=== PATIENT | female | born 1970 | race Caucasian/White ===

== ENCOUNTER 2021-05-22 09:15 | Inpatient (IN) ==
[2021-05-22] MEDS ORDERED: dexAMETHasone**PF** 10 MG/ML VIAL IV ONE (09:36)
--- NOTE | 2021-05-22 09:42 | Emergency Department Note ---
Impression & Plan Pneumonia due to COVID-19 virus, Hypoxia ED Provider Note NAME: ED ASH AGE: 50 SEX: F : 1970 ARRIVES VIA: Walk-In INFORMANT: Patient, ED PROVIDER(S): Nicola Flores DO CHIEF COMPLAINT: Shortness of breath HPI: The patient is a 50-year-old female who presented to the emergency department for an evaluation of shortness of breath. The patient is not vaccinated against COVID-19. She states that her initially started having symptoms for COVID-19 and then she started having symptoms shortly after. The patient was tested and was positive for COVID-19. She was started on a course of steroids by her primary care physician. She has 2 days left. She did not receive monoclonal antibody therapy. She has had symptoms for a total of 14 days. She did have a pulse ox at home. Over the last 48 hours she started having more shortness of breath and difficulty breathing. She is had difficulty breathing with exertion. The patient has a pulse ox at home and states that it was in the 70s this morning when she was very symptomatic. Since that time she is tried to get up and walk around with worsening shortness of breath. She did not see her primary care physician for the symptoms today. She is not noticed any lower extremity swelling or pain. The patient states her symptoms are mild at this time at rest but become very severe upon any exertion. The patient did have carpal tunnel surgery before this all started but has never had a history of DVT or pulmonary embolism. ROS: See above HPI for pertinent positives & negatives. A total of 10 systems reviewed and were otherwise negative. PAST MEDICAL HISTORY: See Below PAST SURGICAL HISTORY: See Below FAMILY HISTORY: See Below SOCIAL HISTORY: See Below HOME MEDICATIONS: See Below ALLERGIES: See Below VITALS: See Below PHYSICAL EXAMINATION: GENERAL: The patient is awake and alert. The patient is somewhat anxious appearing. EYES: The conjunctivae are clear. The pupils are round and reactive. EARS, NOSE, MOUTH AND THROAT: The nose is without any evidence of any deformity. NECK: The neck is nontender and supple. RESPIRATORY: Stational dyspnea was noted. Diminished breath sounds are noted in the left lung field with rales scattered throughout the right lung field. CARDIOVASCULAR: Regular rate and rhythm noted there no murmurs rubs or gallops normal S1 normal S2. GASTROINTESTINAL: The abdomen is soft. Abdomen is nontender. MUSCULOSKELETAL/EXTREMITIES: There is no evidence of gross deformity full range of motion is noted in the hips and shoulders. SKIN: There is no obvious evidence of any rash. There are no petechiae, pallor or cyanosis noted. No calf tenderness was elicited. NEUROLOGIC: Patient is awake alert and oriented x3 MEDICAL DECISION MAKING: The patient is a 50-year-old female who presented to the emergency department for an evaluation of shortness of breath. The patient was recently diagnosed with COVID-19. Her symptoms continue to worsen. She was on a course of steroids as an outpatient. She presents emergency department today with much worsening symptoms and significant hypoxia. I discussed the patient's laboratory and radiographic studies with her. I also discussed her case with the on-call [facility] hospitalist group. They have agreed to evaluate the patient in the emergency department for further management and disposition. The patient was placed on supplemental oxygen with some improvement of her symptoms. Triage Nursing notes reviewed. Prior medical records reviewed Vital Signs: reviewed and remarkable for hypoxia. Differential diagnosis: Reactive airway disease, pneumonia, pneumothorax, COPD, CHF, infections, cardiac ischemia, pulmonary embolism, musculoskeletal, gastrointestinal, as well as other pathologies. ER treatment provided: See below Diagnostics interpreted by me: ECG: EKG was obtained in the emergency department. My interpretation is normal sinus rhythm at 65 bpm. There is no ectopy. There was no acute ST segment abnormalities noted. This was compared to a tracing from March 06, 2019. No significant changes were noted. Cardiac Monitoring: An order was placed for continuous cardiac monitoring. The monitor shows a rate of 64 bpm with sinus rhythm. Laboratory studies: As stated above and show below. Imaging studies: See below Consultation(s): Dr. Clifford was notified about the patient. He is currently on for the [facility]ist group. Past Med/Surg History Medical History Allergic rhinitis Anxiety Back pain Depression with anxiety Lumbar herniated disc Vitamin D deficiency Surgical History No history of previous surgery Family History Grandmother (Maternal) Breast cancer Grandfather (Paternal) Myocardial infarction Denies family history of Ovarian cancer Colorectal cancer Social History Smoking Status: Never smoker Second Hand Exposure: No; Hx Alcohol Use: No Hx Substance Use: No Preferred Language: Welsh marital status: Current Living Situation: Spouse current occupational status: employed Feels Safe at Home: Yes caffeine: Yes Dental Care, Regularly: No Physical Activity Frequency: 1-2 Times per Week Seatbelt Use: always Sunscreen Use: Yes Allergies Allergies Allergy/AdvReac Type Severity Reaction Status Date / Time prednisone Allergy Mild RASH Verified 05/22/21 12:00 ANTIBIOTIC CREAMS Allergy Mild RASH Uncoded 05/22/21 12:00 Neosporin OINT Allergy Mild Rash Uncoded 05/22/21 12:00 Polysporin OINT Allergy Mild Rash Uncoded 05/22/21 12:00 Home Meds Home Medications Medication Instructions Recorded Confirmed cholecalciferol (vitamin D3) 25 3,000 unit PO PM 03/06/19 05/22/21 mcg (1,000 unit) tablet (Vitamin D3) multivitamin 1 tab PO PM 03/06/19 05/22/21 buspirone 5 mg tablet 5 mg PO PM 05/22/21 05/22/21 dexamethasone 4 mg tablet 4 mg PO QAM 05/22/21 05/22/21 ibuprofen 200 mg capsule (Advil 400 mg PO Q6H PRN 05/22/21 05/22/21 Liqui-Gel) lisinopril 10 mg tablet 10 mg PO PM 05/22/21 05/22/21 Previous Rx's Medication Instructions Recorded codeine 10 mg-guaifenesin 100 mg/5 5 ml PO Q6H PRN #118 ml 05/17/21 mL oral liquid ondansetron HCl 4 mg tablet 4 mg PO Q8H PRN #30 tab 05/17/21 Results & Data (ED) Vital Signs Vital Signs - 24 hr 05/22/21 09:22 05/22/21 10:01 05/22/21 10:30 Temperature 36.7 C Temperature Source Temporal Artery Scan Pulse Rate 79 68 61 Pulse Rate [Apical] Pulse Rate from SpO2 Sensor 68 60 Respiratory Rate 20 27 H 24 Respiratory Effort / Characteristics Non-Labored Spontaneous Respiratory Depth Normal Blood Pressure 99/66 L 103/56 L 105/57 L Blood Pressure [Left Arm] Blood Pressure Mean 77 71 73 Blood Pressure Mean [Left Arm] Blood Pressure Position Sitting Pulse Oximetry 91 92 97 Oxygen Delivery Method Room Air Oxygen Flow Rate Sepsis Recent Fever Within 48 Hours No Sepsis New/Unexplained Change in Mental Status N/A Sepsis Action Taken by Nursing No Action Required 05/22/21 10:33 05/22/21 11:00 05/22/21 11:30 Temperature Temperature Source Pulse Rate 56 L 60 Pulse Rate [Apical] Pulse Rate from SpO2 Sensor 56 L 60 Respiratory Rate 24 23 Respiratory Effort / Characteristics Respiratory Depth Blood Pressure 121/71 127/81 Blood Pressure [Left Arm] Blood Pressure Mean 87 96 Blood Pressure Mean [Left Arm] Blood Pressure Position Pulse Oximetry 90 97 96 Oxygen Delivery Method Room Air Oxygen Flow Rate Sepsis Recent Fever Within 48 Hours Sepsis New/Unexplained Change in Mental Status Sepsis Action Taken by Nursing 05/22/21 12:00 05/22/21 12:33 05/22/21 13:00 Temperature Temperature Source Pulse Rate 75 66 68 Pulse Rate [Apical] Pulse Rate from SpO2 Sensor 71 66 70 Respiratory Rate 29 H 26 H 20 Respiratory Effort / Characteristics Respiratory Depth Blood Pressure 125/68 Blood Pressure [Left Arm] Blood Pressure Mean 87 Blood Pressure Mean [Left Arm] Blood Pressure Position Pulse Oximetry 96 94 96 Oxygen Delivery Method Oxygen Flow Rate Sepsis Recent Fever Within 48 Hours Sepsis New/Unexplained Change in Mental Status Sepsis Action Taken by Nursing 05/22/21 13:30 05/22/21 14:01 05/22/21 14:30 Temperature Temperature Source Pulse Rate 60 100 H 56 L Pulse Rate [Apical] Pulse Rate from SpO2 Sensor 60 56 L Respiratory Rate 23 15 26 H Respiratory Effort / Characteristics Respiratory Depth Blood Pressure Blood Pressure [Left Arm] Blood Pressure Mean Blood Pressure Mean [Left Arm] Blood Pressure Position Pulse Oximetry 95 95 Oxygen Delivery Method Oxygen Flow Rate Sepsis Recent Fever Within 48 Hours Sepsis New/Unexplained Change in Mental Status Sepsis Action Taken by Nursing 05/22/21 15:44 Temperature Temperature Source Pulse Rate Pulse Rate [Apical] 64 Pulse Rate from SpO2 Sensor Respiratory Rate 26 H Respiratory Effort / Characteristics Respiratory Depth Blood Pressure Blood Pressure [Left Arm] 110/63 Blood Pressure Mean Blood Pressure Mean [Left Arm] 78 Blood Pressure Position Pulse Oximetry 94 Oxygen Delivery Method Nasal Cannula Oxygen Flow Rate 2 Sepsis Recent Fever Within 48 Hours Sepsis New/Unexplained Change in Mental Status Sepsis Action Taken by Alf Medications Current Medication List: was personally reviewed by me Laboratory Data Attestation: I reviewed the patient's lab results. Result diagrams: 05/22/21 09:58 05/22/21 09:58 Lab Results 05/22/21 05/22/21 05/22/21 Range/Units 09:58 09:58 09:58 WBC 4.93 (4.8-10.8) K/uL RBC 4.45 (4.2-5.4) M/uL Hgb 13.4 (12.0-16.0) g/dL Hct 39.9 (37-47) % MCV 89.7 (80-100) fL MCH 30.1 (25-34) pg MCHC 33.6 (32-36) g/dL RDW Std Deviation 45.5 (36.4-46.3) fL RDW Coeff of Trisha 13.8 (11.5-14.5) % Plt Count 176 (130-400) K/uL MPV 9.6 (7.4-10.4) fL Immature Gran % (Auto) 0.6 % Neut % (Auto) 79.5 % Lymph % (Auto) 12.2 % Gem % (Auto) 7.5 % Eos % (Auto) 0.0 % Baso % (Auto) 0.2 % Neut # (Auto) 3.92 (1.4-6.5) K/uL Lymph # (Auto) 0.60 L (1.2-3.4) K/uL Gem # (Auto) 0.37 (0.11-0.59) K/uL Eos # (Auto) 0.00 (0-0.5) K/uL Baso # (Auto) 0.01 (0-0.2) K/uL Immature Gran # (Auto) 0.03 H (0.00-0.02) K/uL PT 9.2 (9.0-12.0) Seconds INR 0.9 (0.9-1.1) APTT 26.9 (21.0-31.0) Seconds PTT Ratio 1.0 D-Dimer 760 H* (0-500) ug/L FEU VBG pH (7.36-7.41) VBG pCO2 (38-50) mmHg VBG pO2 mmHg VBG HCO3 mmol/L VBG O2 Saturation % VBG Base Excess mEq/L Barometric Pressure mm/Hg Sodium 140 (136-145) mmol/L Potassium 3.2 L (3.5-5.1) mmol/L Chloride 105 (98-107) mmol/L Carbon Dioxide 28 (21-32) mmol/L Anion Gap 7.0 (3-11) BUN 9 (7-18) mg/dl Creatinine 0.85 (0.6-1.2) mg/dl Est Cr Clr Drug Dosing 112.3 ml/min Est GFR ( Amer) 93.9 ml/min Est GFR (Non-Af Amer) 81.0 ml/min BUN/Creatinine Ratio 10.1 (10-20) Glucose 109 H (70-99) mg/dl Calcium 8.0 L (8.5-10.1) mg/dl Magnesium 2.3 (1.8-2.4) mg/dl Total Bilirubin 0.8 (0.2-1) mg/dl AST 72 H (15-37) U/L ALT 84 H (12-78) U/L Alkaline Phosphatase 109 (45-117) U/L Troponin I < 0.015 (0-0.045) ng/ml C-Reactive Protein (0-0.29) mg/dl NT-Pro-B Natriuret Pep 237 (0-450) pg/ml Total Protein 6.9 (6.4-8.2) gm/dl Albumin 2.8 L (3.4-5.0) gm/dl Globulin 4.1 H (2.5-4.0) gm/dl Albumin/Globulin Ratio 0.7 L (0.9-2) Procalcitonin (0-0.5) ng/ml Urine Color Urine Appearance (Clear) Urine pH (4.5-7.5) Ur Specific [place] (1.000-1.030) Urine Protein (Negative) Urine Glucose (UA) (Negative) Urine Ketones (Negative) Urine Blood (Negative) Urine Nitrite (Negative) Urine Bilirubin (Negative) Urine Urobilinogen (Negative) Ur Leukocyte Esterase (Negative) Urine WBC (Auto) (0-5) /hpf Urine RBC (Auto) (0-4) /hpf U Hyaline Cast (Auto) (0-5) /lpf U Epithel Cells (Auto) (0-5) /lpf Urine Bacteria (Auto) (Negative) COVID-19 Eval Order SARS-CoV-2 (PCR) (Negative) 05/22/21 05/22/21 05/22/21 Range/Units 09:58 09:58 10:40 WBC (4.8-10.8) K/uL RBC (4.2-5.4) M/uL Hgb (12.0-16.0) g/dL Hct (37-47) % MCV (80-100) fL MCH (25-34) pg MCHC (32-36) g/dL RDW Std Deviation (36.4-46.3) fL RDW Coeff of Trisha (11.5-14.5) % Plt Count (130-400) K/uL MPV (7.4-10.4) fL Immature Gran % (Auto) % Neut % (Auto) % Lymph % (Auto) % Gem % (Auto) % Eos % (Auto) % Baso % (Auto) % Neut # (Auto) (1.4-6.5) K/uL Lymph # (Auto) (1.2-3.4) K/uL Gem # (Auto) (0.11-0.59) K/uL Eos # (Auto) (0-0.5) K/uL Baso # (Auto) (0-0.2) K/uL Immature Gran # (Auto) (0.00-0.02) K/uL PT (9.0-12.0) Seconds INR (0.9-1.1) APTT (21.0-31.0) Seconds PTT Ratio D-Dimer (0-500) ug/L FEU VBG pH 7.42 H (7.36-7.41) VBG pCO2 44 (38-50) mmHg VBG pO2 32 mmHg VBG HCO3 27 mmol/L VBG O2 Saturation 61.7 % VBG Base Excess 2.5 mEq/L Barometric Pressure 734.6 mm/Hg Sodium (136-145) mmol/L Potassium (3.5-5.1) mmol/L Chloride (98-107) mmol/L Carbon Dioxide (21-32) mmol/L Anion Gap (3-11) BUN (7-18) mg/dl Creatinine (0.6-1.2) mg/dl Est Cr Clr Drug Dosing ml/min Est GFR ( Amer) ml/min Est GFR (Non-Af Amer) ml/min BUN/Creatinine Ratio (10-20) Glucose (70-99) mg/dl Calcium (8.5-10.1) mg/dl Magnesium (1.8-2.4) mg/dl Total Bilirubin (0.2-1) mg/dl AST (15-37) U/L ALT (12-78) U/L Alkaline Phosphatase (45-117) U/L Troponin I (0-0.045) ng/ml C-Reactive Protein 3.60 H (0-0.29) mg/dl NT-Pro-B Natriuret Pep (0-450) pg/ml Total Protein (6.4-8.2) gm/dl Albumin (3.4-5.0) gm/dl Globulin (2.5-4.0) gm/dl Albumin/Globulin Ratio (0.9-2) Procalcitonin (0-0.5) ng/ml Urine Color Dark Yellow Urine Appearance Clear (Clear) Urine pH 6.5 (4.5-7.5) Ur Specific [place] 1.022 (1.000-1.030) Urine Protein Trace H (Negative) Urine Glucose (UA) Negative (Negative) Urine Ketones Negative (Negative) Urine Blood Negative (Negative) Urine Nitrite Negative (Negative) Urine Bilirubin Negative (Negative) Urine Urobilinogen Negative (Negative) Ur Leukocyte Esterase Trace H (Negative) Urine WBC (Auto) 5-10 H (0-5) /hpf Urine RBC (Auto) 10-30 H (0-4) /hpf U Hyaline Cast (Auto) 1-5 (0-5) /lpf U Epithel Cells (Auto) >30 H (0-5) /lpf Urine Bacteria (Auto) 2+ H (Negative) COVID-19 Eval Order SARS-CoV-2 (PCR) (Negative) 05/22/21 05/22/21 05/22/21 Range/Units 10:40 10:40 14:36 WBC (4.8-10.8) K/uL RBC (4.2-5.4) M/uL Hgb (12.0-16.0) g/dL Hct (37-47) % MCV (80-100) fL MCH (25-34) pg MCHC (32-36) g/dL RDW Std Deviation (36.4-46.3) fL RDW Coeff of Trisha (11.5-14.5) % Plt Count (130-400) K/uL MPV (7.4-10.4) fL Immature Gran % (Auto) % Neut % (Auto) % Lymph % (Auto) % Gem % (Auto) % Eos % (Auto) % Baso % (Auto) % Neut # (Auto) (1.4-6.5) K/uL Lymph # (Auto) (1.2-3.4) K/uL Gem # (Auto) (0.11-0.59) K/uL Eos # (Auto) (0-0.5) K/uL Baso # (Auto) (0-0.2) K/uL Immature Gran # (Auto) (0.00-0.02) K/uL PT (9.0-12.0) Seconds INR (0.9-1.1) APTT (21.0-31.0) Seconds PTT Ratio D-Dimer (0-500) ug/L FEU VBG pH (7.36-7.41) VBG pCO2 (38-50) mmHg VBG pO2 mmHg VBG HCO3 mmol/L VBG O2 Saturation % VBG Base Excess mEq/L Barometric Pressure mm/Hg Sodium (136-145) mmol/L Potassium (3.5-5.1) mmol/L Chloride (98-107) mmol/L Carbon Dioxide (21-32) mmol/L Anion Gap (3-11) BUN (7-18) mg/dl Creatinine (0.6-1.2) mg/dl Est Cr Clr Drug Dosing ml/min Est GFR ( Amer) ml/min Est GFR (Non-Af Amer) ml/min BUN/Creatinine Ratio (10-20) Glucose (70-99) mg/dl Calcium (8.5-10.1) mg/dl Magnesium (1.8-2.4) mg/dl Total Bilirubin (0.2-1) mg/dl AST (15-37) U/L ALT (12-78) U/L Alkaline Phosphatase (45-117) U/L Troponin I (0-0.045) ng/ml C-Reactive Protein (0-0.29) mg/dl NT-Pro-B Natriuret Pep (0-450) pg/ml Total Protein (6.4-8.2) gm/dl Albumin (3.4-5.0) gm/dl Globulin (2.5-4.0) gm/dl Albumin/Globulin Ratio (0.9-2) Procalcitonin < 0.05 (0-0.5) ng/ml Urine Color Urine Appearance (Clear) Urine pH (4.5-7.5) Ur Specific [place] (1.000-1.030) Urine Protein (Negative) Urine Glucose (UA) (Negative) Urine Ketones (Negative) Urine Blood (Negative) Urine Nitrite (Negative) Urine Bilirubin (Negative) Urine Urobilinogen (Negative) Ur Leukocyte Esterase (Negative) Urine WBC (Auto) (0-5) /hpf Urine RBC (Auto) (0-4) /hpf U Hyaline Cast (Auto) (0-5) /lpf U Epithel Cells (Auto) (0-5) /lpf Urine Bacteria (Auto) (Negative) COVID-19 Eval Order Covid19 at [facility] SARS-CoV-2 (PCR) POSITIVE A* (Negative) Administered Medications Discontinued Medications Dexamethasone Sodium Phosphate (DexamethasonePf 10 Mg/Ml Vial) 10 mg IV NOW ONE Stop: 05/22/21 09:37 Last Admin: 05/22/21 10:13 Dose: 10 mg Documented by: [id number] Sodium Chloride (Nss 1000ml) 1,000 mls @ 999 mls/hr IV .Q1H1M DAVID Stop: 05/22/21 10:45 Last Infusion: 05/22/21 11:54 Dose: 0 mls/hr Documented by: [id number] Admin: 05/22/21 10:13 Dose: 999 mls/hr Documented by: [id number] Ioversol (Optiray 320 125ml) 120 ml IV ONCE ONE Stop: 05/22/21 11:16 Last Admin: 05/22/21 11:15 Dose: 120 ml Documented by: [id number] Potassium Chloride (Potassium Chloride Crtab 20 Meq Tabcr) 20 meq PO NOW STA Stop: 05/22/21 12:36 Last Admin: 05/22/21 15:45 Dose: Not Given Documented by: [id number] Potassium Chloride (Potassium Chloride 10 Meq Tabcr) Confirm Administered Dose 20 meq PO .STK-MED ONE Stop: 05/22/21 15:42 Last Admin: 05/22/21 15:44 Dose: 20 meq Documented by: [id number] Imaging Data Radiologist's Impression: Chest X-Ray 05/22/21 09:33 XR chest 1V portable HISTORY: 50 years-old Female Dyspnea acute shortness of breath COMPARISON: Chest radiographs 12/02/2011 TECHNIQUE: Portable AP view of the chest FINDINGS: Cardiac silhouette is normal. Patchy bilateral airspace opacities with mild bilateral hilar prominence. No pneumothorax or large pleural effusion. No acute fracture. IMPRESSION: 1. Bilateral airspace opacities are suggestive of multifocal pneumonia. 2. Hilar prominence may represent associated adenopathy. ACT 112: Negative or not required by law. The above report was generated using voice recognition software. It may contain grammatical, syntax or spelling errors. Electronically signed by: Sylvain Elaine M.D. 05/22/2021 10:47 AM Chest CTA 05/22/21 10:37 CT angio chest PE protocol CT DOSE: 454.83 mGycm HISTORY: 50 years-old Female with PE. Acute shortness of breath. COVID Positive. TECHNIQUE: Multiple CTA images of the chest were obtained after the intravenous administration of 120 ml Optiray. Coronal and sagittal MIPS were obtained from the axial data set and were submitted for review. All measurements were o btained according to NASCET criteria. A dose lowering technique was utilized adhering to the principles of ALARA. COMPARISON: Chest radiograph of same day FINDINGS: CTA: The heart is upper limits of normal in size. No pericardial effusion. Unremarkable appearance of the thoracic aorta. The pulmonary arterial tree is opacified to the level of the proximal subsegmental branches. The segmental and subsegmental branches are suboptimally evaluated secondary to respiratory motion artifact. No filling defects identified to suggest thromboembolic disease. CT CHEST: No thyroid nodule. Mildly enlarged subcarinal and right hilar lymph nodes measure up to approximately 1.1 cm. Trace pleural effusions. No pneumothorax. Calcified granuloma of the left upper lobe. Patchy multifocal groundglass and alveolar opacities are noted in a multilobar distribution, most pronounced in the lower lobes. Central airways are patent. No acute process of the imaged upper abdomen. The spleen and liver appear enlarged with possible hepatic steatosis. Unremarkable soft tissues. There is no acute fracture. IMPRESSION: 1. No pulmonary emboli. 2. Bilateral groundglass and airspace opacities are suggestive of viral pneumonia. 3. Mild reactive mediastinal and hilar adenopathy. ACT 112: Negative or not required by law. The above report was generated using voice recognition software. It may contain grammatical, syntax or spelling errors. Electronically signed by: Sylvain Elaine M.D. 05/22/2021 11:36 AM Discharge Plan Visit Data Chief Complaint: Shortness of Breath/Dyspnea Stated Complaint: LOW OXYGEN LEVELS---COV+ ED Provider: Nicola Flores Discharge Problem: Pneumonia due to COVID-19 virus, Hypoxia Patient Disposition: Admitted As Inpatient Prescriptions Prescriptions: No Action codeine-guaifenesin 10-100 mg/5 mL liquid 5 ml PO Q6H PRN (Reason: cold symptoms) Qty: 118 RF: 0 ondansetron HCl 4 mg tablet 4 mg PO Q8H PRN (Reason: nausea and vomiting) Qty: 30 RF: 1 multivitamin Tablet 1 tab PO PM RF: 0 cholecalciferol (vitamin D3) [Vitamin D3] 1,000 unit Tablet 3,000 unit PO PM RF: 0 ibuprofen [Advil Liqui-Gel] 200 mg Capsule 400 mg PO Q6H PRN (Reason: fever/pain) RF: 0 buspirone 5 mg tablet 5 mg PO PM RF: 0 dexamethasone 4 mg tablet 4 mg PO QAM RF: 0 lisinopril 10 mg tablet 10 mg PO PM RF: 0
[2021-05-22] MEDS ORDERED: SODIUM CHLORIDE 0.9% 1000ML 1,000 ML IV SCH (09:45)
[2021-05-22 10:18] LABS: Basophils # (auto) 0.01 K/uL (0-0.2); Basophils % (auto) 0.2 %; Hematocrit (blood only) 39.9 % (37-47); Hemoglobin 13.4 g/dL (12.0-16.0); Immature Granulocytes # (auto) 0.03 K/uL (0.00-0.02); Immature Granulocytes % (auto) 0.6 %; Lymphocytes % (auto) 12.2 %; Mean Corpuscular Hemoglobin 30.1 pg (25-34); Mean Corpuscular Hgb Conc 33.6 g/dL (32-36); Mean Corpuscular Volume 89.7 fL (80-100); Mean Platelet Volume 9.6 fL (7.4-10.4); Monocytes # (auto) 0.37 K/uL (0.11-0.59); Monocytes % (auto) 7.5 %; Neutrophils # (auto) 3.92 K/uL (1.4-6.5); Neutrophils % (auto) 79.5 %; Platelet Count 176 K/uL (130-400); RDW Coefficient of Variation 13.8 % (11.5-14.5); RDW Standard Deviation 45.5 fL (36.4-46.3); Red Blood Count 4.45 M/uL (4.2-5.4); White Blood Count 4.93 K/uL (4.8-10.8)
[2021-05-22 10:26] LABS: Base Excess VBG 2.5 mEq/L; Oxygen Saturation VBG 61.7 %; pH VBG 7.42 (7.36-7.41)
[2021-05-22 10:33] LABS: INR 0.9 (0.9-1.1); Partial Thromboplastin Time 26.9 Seconds (21.0-31.0); Prothrombin Time 9.2 Seconds (9.0-12.0)
[2021-05-22 10:36] LABS: D Dimer 760 ug/L FEU (0-500)
[2021-05-22 10:44] LABS: Alanine Aminotransferase 84 U/L (12-78); Albumin Level 2.8 gm/dl (3.4-5.0); Aspartate Aminotransferase 72 U/L (15-37); BUN Creatinine Ratio 10.1 (10-20); Blood Urea Nitrogen 9 mg/dl (7-18); Carbon Dioxide 28 mmol/L (21-32); Chloride 105 mmol/L (98-107); Creatinine Clr Calc Pharmacy 112.3 ml/min; Est GFR (African American) 93.9 ml/min; Glucose 109 mg/dl (70-99); Magnesium 2.3 mg/dl (1.8-2.4); Potassium 3.2 mmol/L (3.5-5.1); Sodium 140 mmol/L (136-145)
[2021-05-22 10:48] LABS: Albumin Globulin Ratio 0.7 (0.9-2); Alkaline Phosphatase 109 U/L (45-117); Bilirubin,Total 0.8 mg/dl (0.2-1); Globulin 4.1 gm/dl (2.5-4.0); NT Pro B Type Natriuretic Pept 237 pg/ml (0-450); Total Protein 6.9 gm/dl (6.4-8.2); Troponin I < 0.015 ng/ml (0-0.045)
--- NOTE | 2021-05-22 10:48 | XRay Report ---
XR chest 1V portable HISTORY: 50 years-old Female Dyspnea acute shortness of breath COMPARISON: Chest radiographs 12/02/2011 TECHNIQUE: Portable AP view of the chest FINDINGS: Cardiac silhouette is normal. Patchy bilateral airspace opacities with mild bilateral hilar prominenc e. No pneumothorax or large pleural effusion. No acute fracture. IMPRESSION: 1. Bilateral airspace opacities are suggestive of multifocal pneumonia. 2. Hilar prominence may represent associated adenopathy. ACT 112: Negative or not required by law. The above report was generated using voice recognition software. It may contain grammatical, syntax o r spelling errors. Electronically signed by: Sylvain Elaine M.D. 05/22/2021 10:47 AM
[2021-05-22 10:56] LABS: Appearance Urine Clear (Clear); Bacteria Urine Automated 2+ (Negative); Bilirubin Urine Negative (Negative); Blood Urine Negative (Negative); Color Urine Dark Yellow; Epithelial Cell Urine Auto >30 /lpf (0-5); Glucose Urine UA Negative (Negative); Ketones Urine Negative (Negative); Leukocyte Esterase Urine Trace (Negative); Nitrite Urine Negative (Negative); Protein Urine Trace (Negative); Specific Gravity Urine 1.022 (1.000-1.030); Urobilinogen Urine Negative (Negative); pH Urine 6.5 (4.5-7.5)
[2021-05-22] MEDS ORDERED: OPTIRAY 320 125ml IV ONE (11:15)
--- NOTE | 2021-05-22 11:38 | CT Scan Report ---
CT angio chest PE protocol CT DOSE: 454.83 mGycm HISTORY: 50 years-old Female with PE. Acute shortness of breath. COVID Positive. TECHNIQUE: Multiple CTA images of the chest were obtained after the intravenous administration of 120 ml Optiray. Coronal and sagittal MIPS were obtained from the axial data set and were submitted for review. All measurements were obtained according to NASCET criteria. A dose lowering technique was u tilized adhering to the principles of ALARA. COMPARISON: Chest radiograph of same day FINDINGS: CTA: The heart is upper limits of normal in size. No pericardial effusion. Unremarkable appearance of the thoracic aorta. The pulmonary arterial tree is opacified to the level of the proximal subsegmental br anches. The segmental and subsegmental branches are suboptimally evaluated secondary to respiratory m otion artifact. No filling defects identified to suggest thromboembolic disease. CT CHEST: No thyroid nodule. Mildly enlarged subcarinal and right hilar lymph nodes measure up to approximately 1.1 cm. Trace pleural effusions. No pneumothorax. Calcified granuloma of the left upper lobe. Patchy multifocal groundglass and alveolar opacities are noted in a multilobar distribution, most pronounce d in the lower lobes. Central airways are patent. No acute process of the imaged upper abdomen. The spleen and liver appear enlarged with possible hepa tic steatosis. Unremarkable soft tissues. There is no acute fracture. IMPRESSION: 1. No pulmonary emboli. 2. Bilateral groundglass and airspace opacities are suggestive of viral pneumonia. 3. Mild reactive mediastinal and hilar adenopathy. ACT 112: Negative or not required by law. The above report was generated using voice recognition software. It may contain grammatical, syntax o r spelling errors. Electronically signed by: Sylvain Elaine M.D. 05/22/2021 11:36 AM
--- NOTE | 2021-05-22 12:07 | History & Physical Report ---
Date of Service May 22, 2021 Assessment & Plan (1) Pneumonia due to COVID-19 virus: Plan: Unvaccinated. CRP 3.6, procalcitonin negative Dexamethasone 10mg IV given in ER. will continue on 6mg IV daily Encourage proning Incentive spirometer and flutter valve Suspect sudden acute hypoxia this morning she experienced was most likely mucus plugging given rapid resolution in symptoms. (2) Hypoxia: Plan: Aim O2 sats > 94% (3) Hypertension: Plan: BP low normal. Hold lisinopril 10mg. (4) Depression with anxiety: Plan: Buspirone 5mg PO HS Plan: VTE Prophylaxis - COVID dose lovenox 40mg SQ BID Diet - regular Disposition - admit to med/surg Admission and Anticipated Discharge Date Admission Date: May 22, 2021 History of Present Illness Chief Complaint: Shortness of breath Primary Care Provider: YOAV Escobar November Sandrine is a 50 year old female who presents to the ER with shortness of breath with known COVID-19 pneumonia. Initial symptoms May 10. Day 13 of illness. She is unvaccinated. Initial symptoms with chills, headache, diarrhea, cough, loss taste and smell (3-4 days, now resolved) Came to the ER today because O2 sats measured at 71% this morning with associated acute onset shortness of breath. Even with deep breathing she couldn't get it about 81%. More productive phlegm with red tint. Shortness of breath on exertion getting slowly worse over the last week. Previously while walking up step but currently even walking to the bathroom. Nausea and diarrhea improved. Prescribed 05/17 dexamethasone 4mg PO by PCP. In the ER she is borderline hypoxic with O2 sats 92-94% at rest but drop to mid 80s on light exertion. CXR and CT consistent with COVID-19 pneumonia. She was referred to medicine for admission and ongoing management for COVID-19 and hypoxia. Allergies Allergy/AdvReac Type Severity Reaction Status Date / Time prednisone Allergy Mild RASH Verified 05/22/21 12:00 ANTIBIOTIC CREAMS Allergy Mild RASH Uncoded 05/22/21 12:00 Neosporin OINT Allergy Mild Rash Uncoded 05/22/21 12:00 Polysporin OINT Allergy Mild Rash Uncoded 05/22/21 12:00 Home Medications Medication Instructions Recorded Confirmed Type cholecalciferol (vitamin D3) 25 3,000 unit PO PM 03/06/19 05/22/21 History mcg (1,000 unit) tablet (Vitamin D3) multivitamin 1 tab PO PM 03/06/19 05/22/21 History codeine 10 mg-guaifenesin 100 mg/5 5 ml PO Q6H PRN #118 ml 05/17/21 05/22/21 Rx mL oral liquid ondansetron HCl 4 mg tablet 4 mg PO Q8H PRN #30 tab 05/17/21 05/22/21 Rx buspirone 5 mg tablet 5 mg PO PM 05/22/21 05/22/21 History dexamethasone 4 mg tablet 4 mg PO QAM 05/22/21 05/22/21 History ibuprofen 200 mg capsule (Advil 400 mg PO Q6H PRN 05/22/21 05/22/21 History Liqui-Gel) lisinopril 10 mg tablet 10 mg PO PM 05/22/21 05/22/21 History Past Med/Surg History Medical History Allergic rhinitis Anxiety Back pain Depression with anxiety Lumbar herniated disc Vitamin D deficiency Surgical History No history of previous surgery Family History Grandmother (Maternal) Breast cancer Grandfather (Paternal) Myocardial infarction Denies family history of Ovarian cancer Colorectal cancer Social History Smoking Status: Never smoker Second Hand Exposure: No; Hx Alcohol Use: No Hx Substance Use: No Preferred Language: Wolof Clinical Research Analyst Required: No Beliefs That Will Affect Care: None marital status: Current Living Situation: Spouse and Family current occupational status: employed Other Information That Helps Us Care for You: No Feels Safe at Home: Yes Safety Concerns: Feels Safe At This Time caffeine: Yes Dental Care, Regularly: No Physical Activity Frequency: 1-2 Times per Week Seatbelt Use: always Sunscreen Use: Yes Assistive Devices: Glasses Review of Systems Review of Systems: All systems reviewed & are unremarkable except as noted in HPI & below Physical Exam Constitutional: WD/WN, vitals as above Eyes: + anicteric sclerae; normal pupil size ENMT: external ear and nose normal, oropharynx normal Neck: trachea midline, no thyromegaly Respiratory: normal respiratory effort; no respiratory distress Auscultation: + crackles (throughout posteriorly); no wheezes Cardiovascular: RRR, no murmur, no edema Gastrointestinal (Abdomen): normal bowel sounds, soft, nontender, no hepatosplenomegaly Musculoskeletal: no cyanosis or clubbing, extremities motor strength 5/5 Skin: no rashes, warm and dry Neurologic: moves all extremities and awake; not confused Psychiatric: A+Ox3, euthymic affect Genitourinary: no CVA tenderness Results & Data Results & Data ([facility]) Vital Signs (Past 12 Hours) Vital Signs Temp Pulse Resp BP Pulse Ox 05/22/21 10:33 90 05/22/21 10:30 61 24 105/57 L 97 05/22/21 10:01 68 27 H 103/56 L 92 05/22/21 09:22 36.7 C 79 20 99/66 L 91 Diagnostic Findings XR chest 1V portable HISTORY: 50 years-old Female Dyspnea acute shortness of breath COMPARISON: Chest radiographs 12/02/2011 TECHNIQUE: Portable AP view of the chest FINDINGS: Cardiac silhouette is normal. Patchy bilateral airspace opacities with mild bilateral hilar prominence. No pneumothorax or large pleural effusion. No acute fracture. IMPRESSION: 1. Bilateral airspace opacities are suggestive of multifocal pneumonia. 2. Hilar prominence may represent associated adenopathy. CT angio chest PE protocol CT DOSE: 454.83 mGycm HISTORY: 50 years-old Female with PE. Acute shortness of breath. COVID Positive. TECHNIQUE: Multiple CTA images of the chest were obtained after the intravenous administration of 120 ml Optiray. Coronal and sagittal MIPS were obtained from the axial data set and were submitted for review. All measurements were obtained according to NASCET criteria. A dose lowering technique was utilized adhering to the principles of ALARA. COMPARISON: Chest radiograph of same day FINDINGS: CTA: The heart is upper limits of normal in size. No pericardial effusion. Unremarkable appearance of the thoracic aorta. The pulmonary arterial tree is opacified to the level of the proximal subsegmental branches. The segmental and subsegmental branches are suboptimally evaluated secondary to respiratory motion artifact. No filling defects identified to suggest thromboembolic disease. CT CHEST: No thyroid nodule. Mildly enlarged subcarinal and right hilar lymph nodes measure up to approximately 1.1 cm. Trace pleural effusions. No pneumothorax. Calcified granuloma of the left upper lobe. Patchy multifocal groundglass and alveolar opacities are noted in a multilobar distribution, most pronounced in the lower lobes. Central airways are patent. No acute process of the imaged upper abdomen. The spleen and liver appear enlarged with possible hepatic steatosis. Unremarkable soft tissues. There is no acute fracture. IMPRESSION: 1. No pulmonary emboli. 2. Bilateral groundglass and airspace opacities are suggestive of viral pneumonia. 3. Mild reactive mediastinal and hilar adenopathy. Medications Administered ER Medications Given: NSS 1L bolus Dexamethasone 10mg IV ECG Indication: SOB/dyspnea Rate (beats per minute): 65 Rhythm: normal sinus Findings: no acute ischemic change Change: no significant change (March 06, 2019) Code Status & VTE Plan Code Status Full VTE Prophylaxis Plan VTE Prophylaxis will be ordered: Yes PG Care Time/CCT Total # of Minutes Spent Total Time Spent with Patient: Total time spent is greater than 50% in coordination of care (as documented) at patient's floor/unit and/or counseling patient: Coding Level of Care Code 94534 Initial Inpt Care Lvl 2 Diagnoses Pneumonia due to COVID-19 virus U07.1; J12.82 Hypoxia R09.02 Hypertension I10 Depression with anxiety F41.8
[2021-05-22] MEDS ORDERED: POTASSIUM CHLORIDE CRTAB 20 MEQ TABCR PO STA (12:35)
[2021-05-22] MEDS ORDERED: POTASSIUM CHLORIDE 10 MEQ TABCR PO ONE (15:41)
[2021-05-22] MEDS ORDERED: ALUMINUM/MAGNESIUM SUSP 30 ML UDC PO PRN (16:15)
[2021-05-22] MEDS ORDERED: ACETAMINOPHEN 325 MG TAB PO PRN (16:15)
[2021-05-22] MEDS ORDERED: ONDANSETRON INJ 2 MG/ML 2 ML VIAL IV PRN (16:15)
[2021-05-22] MEDS ORDERED: HYDROcodone/HOMATROPINE SYRUP 5MG/1.5MG 5ML UDP PO PRN (16:15)
[2021-05-22] MEDS: guaiFENesin 600 MG TABCR PO SCH (20:52)
[2021-05-22] MEDS: ENOXAPARIN INJ 40 MG/0.4 ML SYR SQ SCH (20:53)
[2021-05-22] MEDS: MULTIVITAMIN TAB PO SCH (20:53)
[2021-05-22] MEDS: CHOLECALCIFEROL 1,000 UNITS 25 MCG TAB PO SCH (20:53)
[2021-05-22] MEDS: busPIRone 5 MG TAB PO SCH (20:53)
[2021-05-23] MEDS ORDERED: IBUPROFEN 600 MG TAB PO PRN (00:24)
--- NOTE | 2021-05-23 05:34 | Electrocardiogram Report ---
Test Reason : Blood Pressure : / mmHG Vent. Rate : 065 BPM Atrial Rate : 065 BPM P-R Int : 158 ms QRS Dur : 080 ms QT Int : 436 ms P-R-T Axes : 044 008 009 degrees QTc Int : 453 ms Normal sinus rhythm When compared with ECG of 06-MAR-2019 10:42, No significant change was found Confirmed by Griffin Loaiza ([id number]) on 05/23/2021 5:34:35 AM Referred By: REFERRED SELF Confirmed By:Griffin Loaiza
[2021-05-23 06:06] LABS: Basophils # (auto) 0.01 K/uL (0-0.2); Basophils % (auto) 0.2 %; Hemoglobin 12.3 g/dL (12.0-16.0); Immature Granulocytes # (auto) 0.03 K/uL (0.00-0.02); Immature Granulocytes % (auto) 0.7 %; Lymphocytes # (auto) 0.88 K/uL (1.2-3.4); Lymphocytes % (auto) 21.9 %; Mean Corpuscular Hemoglobin 29.9 pg (25-34); Mean Corpuscular Hgb Conc 34.2 g/dL (32-36); Mean Corpuscular Volume 87.4 fL (80-100); Mean Platelet Volume 9.8 fL (7.4-10.4); Monocytes # (auto) 0.49 K/uL (0.11-0.59); Monocytes % (auto) 12.2 %; Platelet Count 203 K/uL (130-400); RDW Coefficient of Variation 13.9 % (11.5-14.5); RDW Standard Deviation 44.5 fL (36.4-46.3); Red Blood Count 4.12 M/uL (4.2-5.4); White Blood Count 4.01 K/uL (4.8-10.8)
[2021-05-23 06:38] LABS: BUN Creatinine Ratio 20.2 (10-20); Calcium 7.8 mg/dl (8.5-10.1); Creatinine Clr Calc Pharmacy 136.4 ml/min; Est GFR (African American) 118.7 ml/min; Est GFR (Non-African American) 102.5 ml/min; Potassium 4.1 mmol/L (3.5-5.1)
[2021-05-23] MEDS: dexAMETHasone 6 MG in SYRINGE 0 ML IV SCH (08:23)
[2021-05-23] MEDS: ENOXAPARIN INJ 40 MG/0.4 ML SYR SQ SCH ×2 (08:23→19:57)
[2021-05-23] MEDS: guaiFENesin 600 MG TABCR PO SCH ×2 (08:23→19:57)
--- NOTE | 2021-05-23 14:55 | Hospitalist Progress Note ---
Date of Service May 23, 2021 Assessment & Plan (1) Pneumonia due to COVID-19 virus: Plan: CRP 3.6 on admission, procalcitonin negative CT chest with ground glass opacities, bilateral viral pneumonia Dexamethasone 6mg IV daily, day 2 while here was on 4mg PO at home since 05/17 Encourage proning Incentive spirometer and flutter valve, cough has cleared up, feels better removed oxygen, she is 89-90% she knows to monitor her oxygen levels and put oxygen back on if she is hypoxic if she can stay off oxygen through tomorrow morning then I will send her home (2) Hypoxia: Plan: keep sats > 90% currently stable on room air, will watch closely (3) Hypertension: Plan: BP low normal. continue to hold lisinopril 10mg. (4) Depression with anxiety: Plan: Buspirone 5mg PO HS Plan: VTE Prophylaxis - COVID dose lovenox 40mg SQ BID Diet - regular Disposition - admit to med/surg Admission and Anticipated Discharge Date Admission Date: May 22, 2021 Subjective patient feeling a lot better, not coughing like she was yesterday, no sputum production eating and drinking well, no fever/chills, no chest pain, no hemoptysis has been sick for about two weeks reviewed the chart/imaging, had viral pneumonia on CT chest, no PE right now she is stable on 3L, turned her down to 2L, still 95% told her to remove oxygen, can place back on if she goes down to 88% or feels short of breath she really wants to go home but I explained she is still on oxygen today, want to see if she can be on room air for 24 hours Review of Systems Review of Systems: All systems reviewed & are unremarkable except as noted in Subjective Physical Exam Physical Exam: General: well developed, well nourished, no acute distress, comfortable Neck: supple, trachea midline, normal thyroid Lungs: some crackles in bases, no wheezing, no rhonchi, normal respiratory effort, no accessory muscle use, no distress Heart: regular S1 and S2, no murmur, peripheral pulses normal, capillary refill normal, no edema Abdomen: soft, NT, ND, + BS, no hepatomegaly, normal to percussion Extremities: normal in appearance, no cyanosis, no petechiae, strength is 5/5 bilaterally Neuro: awake, cooperative, moves all extremities, no focal motor deficits, CN II-XII intact, sensation in extremities intact, normal speech Skin: warm, dry, no rash, normal turgor Psych: Awake, alert oriented x 3, euthymic affect Results & Data Results & Data ([facility]) Vital Signs (Past 12 Hours) Vital Signs Temp Pulse Resp BP Pulse Ox 05/23/21 08:27 62 05/23/21 08:18 36.7 C 44 L 20 111/79 98 Laboratory Results Laboratory Results - last 24 hr 05/22/21 05/23/21 05/23/21 14:36 05:44 05:44 WBC 4.01 L RBC 4.12 L Hgb 12.3 Hct 36.0 L MCV 87.4 MCH 29.9 MCHC 34.2 RDW Std Deviation 44.5 RDW Coeff of Trisha 13.9 Plt Count 203 MPV 9.8 Immature Gran % (Auto) 0.7 Neut % (Auto) 65.0 Lymph % (Auto) 21.9 [place] % (Auto) 12.2 Eos % (Auto) 0.0 Baso % (Auto) 0.2 Neut # (Auto) 2.60 Lymph # (Auto) 0.88 L [place] # (Auto) 0.49 Eos # (Auto) 0.00 Baso # (Auto) 0.01 Immature Gran # (Auto) 0.03 H Sodium 138 Potassium 4.1 D Chloride 107 Carbon Dioxide 25 Anion Gap 6.0 BUN 14 D Creatinine 0.70 Est Cr Clr Drug Dosing 136.4 Est GFR ( Amer) 118.7 Est GFR (Non-Af Amer) 102.5 BUN/Creatinine Ratio 20.2 H Glucose 109 H Calcium 7.8 L Procalcitonin < 0.05 Medications Administered Current Inpatient Medications Acetaminophen (Acetaminophen 325 Mg Tab) 650 mg PO Q4H PRN PRN Reason: pain/fever Stop: 06/21/21 16:14 Last Admin: 05/22/21 23:32 Dose: 650 mg Documented by: Al Hydrox/Mg Hydrox/Simethicone (Aluminum/Magnesium Susp 30 Ml Udc) 30 ml PO Q6H PRN PRN Reason: Dyspepsia Stop: 06/21/21 16:14 Buspirone HCl (Buspirone 5 Mg Tab) 5 mg PO PM DAVID Stop: 06/21/21 20:59 Last Admin: 05/22/21 20:53 Dose: 5 mg Documented by: Enoxaparin Sodium (Enoxaparin Inj 40 Mg/0.4 Ml Syr) 40 mg SQ BID DAVID Stop: 06/21/21 20:59 Last Admin: 05/23/21 08:23 Dose: 40 mg Documented by: Guaifenesin (Guaifenesin 600 Mg Tabcr) 1,200 mg PO BID DAVID Stop: 06/21/21 20:59 Last Admin: 05/23/21 08:23 Dose: 1,200 mg Documented by: Hydrocodone Bit/Homatropine Methylb (Hydrocodone/Homatropine Syrup 5mg/1.5mg 5ml Udp) 5 ml PO Q4 PRN PRN Reason: Cough Stop: 06/05/21 16:14 Dexamethasone 6 mg/ Syringe 1.5 mls @ 1 mls/min IV QAM DAVID Stop: 06/01/21 08:59 Last Admin: 05/23/21 08:23 Dose: 1 mls/min Documented by: Ibuprofen (Ibuprofen 600 Mg Tab) 600 mg PO Q6H PRN PRN Reason: Headache Stop: 06/22/21 00:23 Last Admin: 05/23/21 00:55 Dose: 600 mg Documented by: Multivitamins (Multivitamin Tab) 1 tab PO PM DAVID Stop: 06/21/21 20:59 Last Admin: 05/22/21 20:53 Dose: 1 tab Documented by: Ondansetron HCl (Ondansetron Inj 2 Mg/Ml 2 Ml Vial) 4 mg IV Q6H PRN PRN Reason: Nausea Stop: 06/21/21 16:14 Vitamin D (Cholecalciferol 1,000 Units 25 Mcg Tab) 3,000 units PO PM DAVID Stop: 06/21/21 20:59 Last Admin: 05/22/21 20:53 Dose: 3,000 units Documented by: PG Care Time/CCT Total # of Minutes Spent Total Time Spent with Patient: Total time spent is greater than 50% in coordination of care (as documented) at patient's floor/unit and/or counseling patient: Coding Level of Care Code 14785 Subseq Hosp Care Lvl 2 Diagnoses Pneumonia due to COVID-19 virus U07.1; J12.82 Hypoxia R09.02 Hypertension I10 Depression with anxiety F41.8
[2021-05-23] MEDS: CHOLECALCIFEROL 1,000 UNITS 25 MCG TAB PO SCH (19:56)
[2021-05-23] MEDS: busPIRone 5 MG TAB PO SCH (19:57)
[2021-05-23] MEDS: MULTIVITAMIN TAB PO SCH (19:57)
[2021-05-24 07:05] LABS: BUN Creatinine Ratio 22.4 (10-20); Calcium 8.3 mg/dl (8.5-10.1); Creatinine Clr Calc Pharmacy 120.8 ml/min; Est GFR (African American) 102.6 ml/min; Est GFR (Non-African American) 88.5 ml/min; Potassium 3.6 mmol/L (3.5-5.1)
[2021-05-24 07:08] LABS: C Reactive Protein 1.48 mg/dl (0-0.29)
[2021-05-24] MEDS: guaiFENesin 600 MG TABCR PO SCH (08:18)
[2021-05-24] MEDS: dexAMETHasone 6 MG in SYRINGE 0 ML IV SCH (08:19)
[2021-05-24] MEDS: ENOXAPARIN INJ 40 MG/0.4 ML SYR SQ SCH (08:19)
[2021-05-24] MEDS ORDERED: POTASSIUM CHLORIDE CRTAB 20 MEQ TABCR PO STA (08:40)
[2021-05-24] MEDS ORDERED: FUROSEMIDE 20 MG in SYRINGE 0 ML IV ONE (09:00)
--- NOTE | 2021-05-24 16:35 | Discharge Summary ---
Date of Service May 24, 2021 Admission HPI Per Admitting Provider November Sandrine is a 50 year old female who presents to the ER with shortness of breath with known COVID-19 pneumonia. Initial symptoms May 10. Day 13 of illness. She is unvaccinated. Initial symptoms with chills, headache, diarrhea, cough, loss taste and smell (3-4 days, now resolved) Came to the ER today because O2 sats measured at 71% this morning with associated acute onset shortness of breath. Even with deep breathing she couldn't get it about 81%. More productive phlegm with red tint. Shortness of breath on exertion getting slowly worse over the last week. Previously while walking up step but currently even walking to the bathroom. Nausea and diarrhea improved. Prescribed 05/17 dexamethasone 4mg PO by PCP. In the ER she is borderline hypoxic with O2 sats 92-94% at rest but drop to mid 80s on light exertion. CXR and CT consistent with COVID-19 pneumonia. She was referred to medicine for admission and ongoing management for COVID-19 and hypoxia. Principal Diagnosis COVID 19 pneumonia acute hypoxic respiratory failure Discharge Exam General: well developed, well nourished, no acute distress, comfortable Neck: supple, trachea midline, normal thyroid Lungs: clear to auscultation bilaterally, normal respiratory effort, no accessory muscle use, no distress Heart: regular S1 and S2, no murmur, peripheral pulses normal, capillary refill normal, no edema Abdomen: soft, NT, ND, + BS, no hepatomegaly, normal to percussion Extremities: normal in appearance, no cyanosis, no petechiae, strength is 5/5 bilaterally Neuro: awake, cooperative, moves all extremities, no focal motor deficits, CN II-XII intact, sensation in extremities intact, normal speech Skin: warm, dry, no rash, normal turgor Psych: Awake, alert oriented x 3, euthymic affect Discharge Data Allergies Allergy/AdvReac Type Severity Reaction Status Date / Time prednisone Allergy Mild RASH Verified 05/22/21 12:00 ANTIBIOTIC CREAMS Allergy Mild RASH Uncoded 05/22/21 12:00 Neosporin OINT Allergy Mild Rash Uncoded 05/22/21 12:00 Polysporin OINT Allergy Mild Rash Uncoded 05/22/21 12:00 Consultations 05/22/21 11:57 ED Decision to Admit Stat Ordered Studies 05/22/21 10:37 CT angio chest PE protocol Stat Hospital Course (1) Pneumonia due to COVID-19 virus: CRP 3.6 on admission, procalcitonin negative CT chest with ground glass opacities, bilateral viral pneumonia Dexamethasone 6mg IV daily, day 3 send home on 6mg PO x 5 more days, already took a course of 4mg at home prior to admission Encourage proning Incentive spirometer and flutter valve, cough has cleared up, feels better removed oxygen, she is stable all day 2 step this afternoon shows no need for oxygen she knows to monitor her oxygen levels at home (2) Hypoxia: keep sats > 90% currently stable on room air, passed her two step (3) Hypertension: resume Lisinopril (4) Depression with anxiety: Buspirone 5mg PO HS VTE Prophylaxis - COVID dose lovenox 40mg SQ BID Diet - regular Disposition - admit to med/surg Total Time Total Time Spent Total Time Spent (In Minutes): 32 minutes Total Time Includes: Examination of the Patient, Discharge Planning and Medication Reconciliation Discharge Plan Discharge Items Patient Disposition: Home - Self-Care Reason For Visit: COVID PNEUMONIA, ACUTE RESPIRATORY FAILURE Discharge Diagnosis: COVID pneumonia Acute hypoxic respiratory failure Condition on Discharge: Good Goals: complete 5 more days of dexamethasone use flutter valve and incentive spirometer stay well nourished, well hydrated Activity: Resume your previous activity Driving/Machine Use: Resume 3 days after discharge Weightbearing: Full weightbearing Non-emergency contact: Primary Care Provider Call non-emergency contact if: you have any medication questions Follow-up/Referrals: Courtney Parker CRNP [Primary Care Provider] - (one week) Diet: Regular Addtl Attending Provider Instructions: Medications: - DEXAMETHASONE: take 6mg daily for 5 more days no oxygen needed at rest or on exertion recommend you continue to use you flutter valve several times a day, incentive spirometer several times a day can lay on your stomach if you feel short of breath anticipate that you should continue to improve monitor oxygen level, want it above 88% if you cannot maintain levels > 88% then return to the emergency room Pending Studies at Discharge: No Stand-Alone Forms: My [employer], Smoking Cessation Medications and DC Order Prescriptions: New dexamethasone 4 mg tablet 6 mg PO DAILY 5 Days Qty: 8 RF: 0 Continued codeine-guaifenesin 10-100 mg/5 mL liquid 5 ml PO Q6H PRN (Reason: cold symptoms) Qty: 118 RF: 0 ondansetron HCl 4 mg tablet 4 mg PO Q8H PRN (Reason: nausea and vomiting) Qty: 30 RF: 1 multivitamin Tablet 1 tab PO PM RF: 0 cholecalciferol (vitamin D3) [Vitamin D3] 1,000 unit Tablet 3,000 unit PO PM RF: 0 ibuprofen [Advil Liqui-Gel] 200 mg Capsule 400 mg PO Q6H PRN (Reason: fever/pain) RF: 0 buspirone 5 mg tablet 5 mg PO PM RF: 0 lisinopril 10 mg tablet 10 mg PO PM RF: 0 Discontinued dexamethasone 4 mg tablet 4 mg PO QAM RF: 0 Discharge Orders: Discharge Order (Routine); Ordered 05/24/21 Ordered By: Louie Langley Admission Data Admit Date/Time: 05/22/21 12:23 Attending Provider: Louie Langley Admit Provider: Andre Clifford Primary Care Provider: Courtney Parker Other Providers: Andre Clifford Coding Level of Care Code D/C DAY MANAGEMENT >30 MINS Diagnoses Pneumonia due to COVID-19 virus U07.1; J12.82 Hypoxia R09.02 Hypertension I10 Depression with anxiety F41.8
== END 2021-05-24 18:00 | disposition home or self-care (01) | DRG 177 ==
LOC: ED 09:15 → 3W 12:23 → SUATTDRO 12:23 → 3W 15:52
DX: Z88.8 Allergy status to other drugs, medicaments and biological substances; U07.1 COVID-19; J96.01 Acute respiratory failure with hypoxia; J12.82 Pneumonia due to coronavirus disease 2019; F41.8 Other specified anxiety disorders; Z88.1 Allergy status to other antibiotic agents; I10 Essential (primary) hypertension